=== PATIENT | male | born 1995 | race Caucasian/White ===

== ENCOUNTER 2017-06-01 00:24 | Emergency (ER) | payer OTHER ==
[~2017-06-01] VITALS: Ht 177.8 cm; Wt 88.5 kg
[~2017-06-01 00:24] MED LIST: 'PARAFON FORTE500 M1 PO; ALLEGRA ALLERG180 M2 PO; AMOXICILLIN500 M2 PO; AMOXICILLIN500 MG PO; ATARAX25 MG PO; AVPAK AZITHROM250 M1 PO; BENADRYL25 MG PO; CEPHALEXIN500 M1 PO; CLARITIN10 MG PO; HYDROCODONE BIT1 T11 PO; LIDEX0.05% T; MEDROL DOSEPAK4 MG PO; MOTRIN600 MG PO; MOTRIN800 MG PO; NAPROSYN500 MG PO; NKHM; PARAFON FORTE PO; PREDNICOT20 MG PO; PREDNISONE10 MG PO; PROAIR HFA8.5 GM INH; ROBITUSSIN AC 110 ML PO; TUSSIGON PO; ZITHROMAX Z PA250 MG PO; ZITHROMAX250 MG PO; ZOFRAN ODT4 MG SL; ZOFRAN4 MG PO; Zofran4 MG PO
[2017-06-01 00:38] VITALS: BP 157/103
== END 2017-06-01 02:07 | disposition home or self-care (01) ==
LOC: ED 00:24
DX: S61.011A Laceration without foreign body of right thumb without damage to nail, initial encounter (principal); F17.200 Nicotine dependence, unspecified, uncomplicated; W26.0XXA Contact with knife, initial encounter; Y93.89 Activity, other specified; Y92.89 Other specified places as the place of occurrence of the external cause; Y99.8 Other external cause status

== ENCOUNTER 2017-06-10 23:37 | Emergency (ER) | payer OTHER ==
[~2017-06-10] VITALS: Ht 177.8 cm; Wt 83.9 kg
[2017-06-10 23:43] VITALS: BP 136/82
[2017-06-11] MEDS ORDERED: CYCLOBENZAPRINE5 M3 PO (01:45)
[2017-06-11] MEDS ORDERED: Motrin,Rufen800 MG PO (01:45)
== END 2017-06-11 02:00 | disposition home or self-care (01) ==
LOC: ED 23:37
DX: S16.1XXA Strain of muscle, fascia and tendon at neck level, initial encounter (principal); F17.200 Nicotine dependence, unspecified, uncomplicated; X58.XXXA Exposure to other specified factors, initial encounter; Y93.89 Activity, other specified; Y92.89 Other specified places as the place of occurrence of the external cause; Y99.0 Civilian activity done for income or pay

== ENCOUNTER 2017-08-09 20:49 | Emergency (ER) | payer SELFPAY ==
[~2017-08-09] VITALS: Ht 180.3 cm; Wt 90.7 kg
[~2017-08-09 20:49] MED LIST changes: +CYCLOBENZAPRINE5 M3 PO; +Motrin,Rufen800 MG PO
[2017-08-09 20:58] VITALS: BP 127/96
== END 2017-08-09 22:19 | disposition home or self-care (01) ==
LOC: ED 20:49
DX: S93.401A Sprain of unspecified ligament of right ankle, initial encounter (principal); F17.200 Nicotine dependence, unspecified, uncomplicated; W11.XXXA Fall on and from ladder, initial encounter; Y93.89 Activity, other specified; Y92.89 Other specified places as the place of occurrence of the external cause; Y99.8 Other external cause status

== ENCOUNTER 2019-02-25 12:25 | Emergency (ER) | payer OTHER ==
[~2019-02-25] VITALS: Wt 86.2 kg
[2019-02-25 12:27] VITALS: BP 137/85
== END 2019-02-25 14:41 | disposition home or self-care (01) ==
LOC: ED 12:25
DX: S66.912A Strain of unspecified muscle, fascia and tendon at wrist and hand level, left hand, initial encounter (principal); Z79.2 Long term (current) use of antibiotics; Z79.899 Other long term (current) drug therapy; W22.8XXA Striking against or struck by other objects, initial encounter; Y93.89 Activity, other specified; Y92.098 Other place in other non-institutional residence as the place of occurrence of the external cause; Y99.8 Other external cause status

== ENCOUNTER 2019-07-17 09:28 | Emergency (ER) | payer OTHER ==
[~2019-07-17] VITALS: Wt 99.8 kg
[2019-07-17 09:30] VITALS: BP 147/88
[2019-07-17 10:13] LABS: BASO % 0.4 % (0.0-1.0); EOS # 0.2 10*3/uL (0.0-0.4); EOS % 1.7 % (1.0-4.0); HEMATOCRIT 47.8 % (42.0-52.0); HEMOGLOBIN 16.5 g/dl (14.0-18.0); LYMPH % 22.1 % (27.0-41.0); MEAN CORPUSCULAR HGB 31.4 pg (27.0-31.0); MEAN CORPUSCULAR HGB CONC 34.5 g/dl (33.0-37.0); MEAN PLATELET VOLUME 10.4 fl (9.6-12.3); MONO # 0.6 10*3/uL (0.1-1.0); MONO % 6.8 % (3.0-9.0); NEUT # 6.1 10*3/uL (2.3-7.9); NEUT % 68.9 % (47.0-73.0); PLATELET COUNT AUTOMATED 330 10*3/uL (130-400); RED BLOOD COUNT 5.25 10*6/uL (4.50-5.90); RED CELL DISTRI WIDTH 11.8 % (0-14.5); WHITE BLOOD COUNT 8.9 10*3/uL (4.8-10.8)
[2019-07-17 10:28] LABS: ALBUMIN 4.3 gm/dl (3.1-4.5); ALKALINE PHOSPHATASE 85 U/L (45-117); BUN 13 mg/dl (7-24); CHLORIDE 110 mmol/L (98-107); CREATININE 1.06 mg/dL (0.70-1.30); LIPASE 63 U/L (73-393); SGOT/AST 14 IU/L (3-35); SGPT/ALT 32 U/L (12-78); SODIUM 142 mmol/L (136-145); TOTAL PROTEIN 8.2 gm/dL (6.4-8.2)
[2019-07-17 11:36] LABS: BILIRUBIN NEGATIVE (NEGATIVE); BLOOD NEGATIVE (NEGATIVE); CLARITY CLEAR (CLEAR); COLOR YELLOW (YELLOW); GLUCOSE NEGATIVE (NEGATIVE); KETONE NEGATIVE (NEGATIVE); LEUKO ESTERASE NEGATIVE (NEGATIVE); NITRITE NEGATIVE (NEGATIVE); PH 6.5 (5.0-9.0); UROBILINOGEN 0.2 E.U./dl (0.2-1.0)
[2019-07-17 11:37] LABS: RBC 0-2 rbc/hpf (0-2)
== END 2019-07-17 11:54 | disposition home or self-care (01) ==
LOC: ED 09:28
PROVIDERS: Nurse Practitioner Family
DX: S39.011A Strain of muscle, fascia and tendon of abdomen, initial encounter (principal); R11.0 Nausea; Z79.899 Other long term (current) drug therapy; Z79.2 Long term (current) use of antibiotics; X50.0XXA Overexertion from strenuous movement or load, initial encounter; Y93.89 Activity, other specified; Y92.69 Other specified industrial and construction area as the place of occurrence of the external cause; Y99.8 Other external cause status

== ENCOUNTER 2019-09-18 23:13 | Emergency (ER) | payer OTHER ==
[~2019-09-18] VITALS: Ht 180.3 cm; Wt 97.5 kg
[2019-09-18] MEDS ORDERED: CEFADROXIL500 M1 PO (23:31)
== END 2019-09-18 23:58 | disposition home or self-care (01) ==
LOC: ED 23:13
DX: S61.211A Laceration without foreign body of left index finger without damage to nail, initial encounter (principal); F17.200 Nicotine dependence, unspecified, uncomplicated; Z79.899 Other long term (current) drug therapy; W26.8XXA Contact with other sharp object(s), not elsewhere classified, initial encounter; Y92.89 Other specified places as the place of occurrence of the external cause; Y99.8 Other external cause status

== ENCOUNTER 2020-01-07 17:06 | Emergency (ER) | payer OTHER ==
[~2020-01-07] VITALS: Ht 180.3 cm; Wt 86.2 kg
[~2020-01-07 17:06] MED LIST changes: +CEFADROXIL500 M1 PO
[2020-01-07 17:10] VITALS: BP 119/58
== END 2020-01-07 17:29 | disposition home or self-care (01) ==
LOC: ED 17:06
DX: T15.12XA Foreign body in conjunctival sac, left eye, initial encounter (principal); W22.8XXA Striking against or struck by other objects, initial encounter; Y93.89 Activity, other specified; Y92.89 Other specified places as the place of occurrence of the external cause; Y99.8 Other external cause status

== ENCOUNTER 2020-01-09 21:09 | Emergency (ER) | payer OTHER ==
[2020-01-09 21:11] VITALS: BP 142/69
[2020-01-09] MEDS ORDERED: KEFLEX500 M1 PO (23:48)
== END 2020-01-10 00:01 | disposition home or self-care (01) ==
LOC: ED 21:09
DX: S81.011A Laceration without foreign body, right knee, initial encounter (principal); W31.2XXA Contact with powered woodworking and forming machines, initial encounter; Y93.89 Activity, other specified; Y92.89 Other specified places as the place of occurrence of the external cause; Y99.0 Civilian activity done for income or pay

== ENCOUNTER 2020-02-14 16:07 | Emergency (ER) | payer OTHER ==
[~2020-02-14] VITALS: Ht 635 cm; Wt 77.1 kg
[~2020-02-14 16:07] MED LIST changes: +KEFLEX500 M1 PO
[2020-02-14 16:12] VITALS: BP 143/89
[2020-02-14] MEDS ORDERED: AUGMENTIN 875-875 MG PO (18:19)
== END 2020-02-14 18:31 | disposition home or self-care (01) ==
LOC: ED 16:07
DX: H66.91 Otitis media, unspecified, right ear (principal); J40 Bronchitis, not specified as acute or chronic

== ENCOUNTER 2021-01-18 10:11 | Emergency (ER) | payer OTHER ==
[~2021-01-18] VITALS: Ht 177.8 cm; Wt 81.6 kg
[~2021-01-18 10:11] MED LIST changes: +AUGMENTIN 875-875 MG PO
[2021-01-18 10:26] VITALS: BP 128/76
[2021-01-19] MEDS ORDERED: PREDNISONE20 M1 PO (12:08)
== END 2021-01-18 11:00 | disposition left against medical advice (07) ==
LOC: ED 10:11
DX: R21 Rash and other nonspecific skin eruption (principal); Z53.21 Procedure and treatment not carried out due to patient leaving prior to being seen by health care provider

== ENCOUNTER 2021-01-19 10:59 | Emergency (ER) | payer OTHER ==
[~2021-01-19] VITALS: Ht 177.8 cm; Wt 81.6 kg
[2021-01-19 11:53] VITALS: BP 130/70
[2021-01-19] MEDS ORDERED: PREDNISONE20 M1 PO (12:08)
== END 2021-01-19 12:13 | disposition home or self-care (01) ==
LOC: ED 10:59
DX: L23.7 Allergic contact dermatitis due to plants, except food (principal); Z79.2 Long term (current) use of antibiotics

== ENCOUNTER 2021-07-02 11:25 | Emergency (ER) | payer OTHER ==
[~2021-07-02] VITALS: Wt 95.3 kg
[~2021-07-02 11:25] MED LIST changes: +PREDNISONE20 M1 PO
[2021-07-02 11:28] VITALS: BP 128/72
== END 2021-07-02 14:18 | disposition left against medical advice (07) ==
LOC: ED 11:25
DX: J02.9 Acute pharyngitis, unspecified (principal); Z53.21 Procedure and treatment not carried out due to patient leaving prior to being seen by health care provider